=== PATIENT | male | born 1990 | race Caucasian/White ===

== ENCOUNTER 2020-06-25 09:11 | Outpatient (CLI) | payer OTHER, SELFPAY | END 2020-06-25 09:12 | disposition home or self-care (01) | PROVIDERS: PCP Family Medicine; Visit Provider Family Medicine | DX: H91.93 Unspecified hearing loss, bilateral (principal) | CPT/HCPCS: 92557; 92567 ==

== ENCOUNTER 2023-06-14 09:11 | Outpatient (CLI) | payer OTHER, SELFPAY | END 2023-06-14 09:12 | disposition home or self-care (01) | PROVIDERS: PCP Family Medicine; Visit Provider Family Medicine | DX: H91.93 Unspecified hearing loss, bilateral (principal) | CPT/HCPCS: 92557; 92567 ==